=== PATIENT | male | born 1960 | race Caucasian/White ===

== ENCOUNTER 2022-11-09 19:47 | Emergency (ER) | payer OTHER, SELFPAY ==
[2022-11-09] VITALS (14 sets, daily range): BP systolic 156–193; BP diastolic 105–119; PULSE 88–93; RESP 18–32; TEMP 36.4; O2SAT 89–96
--- NOTE | 2022-11-09 20:21 | CRLHL7_ITS ---
For Patients: As a result of the Century Cures Act, medical imaging exams and procedure reports are released immediately into your electronic medical record. You may view this report before your referring provider. If you have questions, please contact your health care provider. INDICATION: Right pleural effusion, distended abdomen, shortness of breath TECHNIQUE: CT chest, abdomen and pelvis acquired with 99 cc of Isovue 370 IV contrast. Permanently recorded images are archived. COMPARISON: None. FINDINGS: CHEST: Cardiovascular structures: Heart size is normal. Thoracic aorta and main pulmonary artery are normal in caliber. No pericardial effusion. No pulmonary embolism. Aberrant right subclavian artery. Mediastinum and gayla: No mass or adenopathy. Lungs and pleura: Massive simple right-sided pleural effusion occupying nearly the entire right hemithorax. Atelectatic collapse of the right lower and right middle lobes and most of the right upper lobe. There is a small amount of aerated right upper lobe. There is [id number] mediastinal shift. The left lung is clear. No pneumothorax. Chest wall and axilla: No mass or adenopathy. Bones: No suspicious bone lesions. Unremarkable for age. ABDOMEN AND PELVIS: Liver: Unremarkable. Gallbladder and bile ducts: Unremarkable. Pancreas: Unremarkable. Spleen: Unremarkable. Adrenal glands: Unremarkable. Kidneys: Unremarkable. GI tract: Unremarkable. No obstruction. Normal appendix. Vascular structures: Unremarkable. Lymph nodes: Unremarkable. Miscellaneous: Unremarkable. No free air or significant free fluid. Pelvic Organs: Unremarkable. Bones: No suspicious bone lesions. L1 hemangioma. Partial ankylosis of the left sacroiliac joint. Otherwise, unremarkable for age. IMPRESSION: Massive simple right pleural effusion occupying nearly the entire right hemithorax with atelectatic collapse of the right middle and lower lobes and most of the right upper lobe. Small amount of aerated right upper lobe. There is associated [id number] mediastinal shift. No acute findings within the abdomen and pelvis. Please note that all CT scans at this facility use dose modulation, iterative reconstruction, and/or weight-based dosing when appropriate to reduce radiation dose to as low as reasonably achievable. Dictated by Jonathan Ling MD @ 11/09/2022 9:45:06 PM (Electronically Signed)
--- NOTE | 2022-11-09 20:27 | ED.GENADULT ---
HPI - General Adult General Chief complaint: Shortness of Breath/Dyspnea Stated complaint: Issues with lungs- says needs chest tube inserted Time Seen by Provider: 11/09/22 20:12 Source: patient and family Mode of arrival: ambulatory History of Present Illness HPI narrative: 62-year-old male with notable past medical history of hyperlipidemia only presents to the emergency department for evaluation of dyspnea on exertion, worsening over the past couple of weeks. He is now starting to have paroxysmal nocturnal dyspnea and difficulty laying flat as well. Symptoms came on gradually, no trauma or injury. Had a little bit of a distended abdomen last night as well but no nausea or vomiting. He has no history of cancers. He presented to urgent care today where they noted a large right-sided pleural effusion of undetermined etiology. He had no knowledge of this previously. He was referred to the emergency department. Other than shortness of breath on exertion, he is not having any chest pain, there has been no fevers. No cough, no hemoptysis. He reports that his last primary care appointment was a month ago where he had his annual physical with his primary care provider, his medications were renewed. He was started on the statin and took it for about a week. He stopped it hoping that this would improve his shortness of breath but of course it had no effect. He has not yet restarted it. He continues to take trazodone at bedtime, no other long-term medications currently. He takes no blood thinners, has no history of DVT or PE, no cardiac history. No prior malignancy. He has never had a colonoscopy but he gets Cologuard test and reports that this is up-to-date. No history of prostate cancer or other malignancies. He has had no early satiety or decreased appetite or weight loss. said that his abdomen seemed a little distended yesterday but it is back to baseline. No blood in his stools, no blood in his urine. Past medical history notable for hyperlipidemia, no other major long-term health problems. No recent surgeries. Meds are atorvastatin and trazodone. Nonsmoker. No pertinent travel. ROS notable for the dyspnea symptoms as above, otherwise denies times 12 systems. Related Data Home Medications Medication Instructions Recorded Confirmed rosuvastatin 20 mg tablet 20 mg PO QPM 11/09/22 11/09/22 trazodone 50 mg tablet 50 mg PO QPM 11/09/22 11/09/22 Allergies Allergy/AdvReac Type Severity Reaction Status Date / Time No Known Drug Allergies Allergy Verified 11/09/22 21:20 PFSH PFS Social History Smoking Status: Former smoker How often do you have a drink containing alcohol: monthly or less How often do you have six or more drinks on one occasion: Never AUDIT-C Alcohol total score: 1 Non-prescribed substance use: denies use Exam Const: Vital Signs, click to edit/add: Vital Signs - 24 hr 11/09/22 19:54 11/09/22 20:30 11/09/22 20:40 Temperature 97.5 F L Pulse Rate 88 90 Pulse Rate [Left P ulse Oximeter] 90 Respiratory Rate 18 32 H Blood Pressure 193/119 H Blood Pressure [Ri ght Upper Arm] 169/111 H Pulse Oximetry 96 96 95 Oxygen Delivery Me thod Room Air 11/09/22 20:45 11/09/22 21:04 11/09/22 21:15 Temperature Pulse Rate 88 92 88 Pulse Rate [Left P ulse Oximeter] Respiratory Rate 28 H Blood Pressure Blood Pressure [Ri ght Upper Arm] Pulse Oximetry 96 89 95 Oxygen Delivery Me thod 11/09/22 21:21 11/09/22 21:30 11/09/22 21:32 Temperature Pulse Rate 93 89 89 Pulse Rate [Left P ulse Oximeter] Respiratory Rate 29 H 30 H 29 H Blood Pressure 193/105 H 172/105 H Blood Pressure [Ri ght Upper Arm] Pulse Oximetry 95 94 95 Oxygen Delivery Me thod 11/09/22 21:33 11/09/22 21:45 11/09/22 22:00 Temperature Pulse Rate 91 89 88 Pulse Rate [Left P ulse Oximeter] Respiratory Rate 28 H 29 H 21 Blood Pressure Blood Pressure [Ri ght Upper Arm] Pulse Oximetry 95 94 95 Oxygen Delivery Me thod 11/09/22 22:02 11/09/22 22:15 Temperature Pulse Rate 89 91 Pulse Rate [Left P ulse Oximeter] Respiratory Rate 28 H 31 H Blood Pressure 156/107 H Blood Pressure [Ri ght Upper Arm] Pulse Oximetry 95 95 Oxygen Delivery Me thod Documenting provider has reviewed patient's vital signs: yes Common normals: no apparent distress and alert General appearance: cooperative and well kempt Orientation/consciousness: Yes awake Other: Good historian. HENMT: Common normals: normocephalic Head and scalp: normocephalic Face and sinus: normal facial exam Mouth: oral and palatal mucosa normal Throat: posterior oropharynx normal Eye: Common normals: conjunctivae normal General eye: normal appearance of both eyes Conjunctiva: conjunctiva(e) normal Neck & C-Spine: Common normals: full ROM and no lymphadenopathy Resp: Common normals: normal respiratory effort and no use of accessory muscles Other: Does get dyspnea to speaking full sentences. Breath sounds on the left are normal. I have no breath sounds whatsoever on the right side. Cardio: Common normals: regular rate, regular rhythm, S1 normal heart sound, S2 normal heart sound and no murmurs Rate: regular rate Rhythm: regular rhythm Heart sounds: S1 normal and S2 normal GI: Other: Abdomen seems a little distended. I am detecting some ascites, cannot easily palpate the edges of the liver. No obvious mass. Extremity: Common normals: normal to inspection, full ROM, normal capillary refill and no pedal edema Neuro: Sensorium/orientation: awake and alert Speech: speech normal Gait (neuro): normal gait Motor exam: strength 5/5 throughout and no movement abnormalities noted Psych: Common normals: mental status grossly normal Appearance: well kempt Attitude: engaged Insight: insight good Judgement: judgment good Skin: Common normals: no rashes or lesions noted General skin exam: no rashes or lesions noted Course Course Hospital Course: X-ray reviewed. Impressive right-sided pleural effusion, undetermined etiology. Because he is also having abdominal symptoms, recommend CT scan of the chest abdomen and pelvis, basic blood work. Concern for underlying malignancy versus lower chance for infectious or cardiac process. Will likely need surgical consult of some kind. Reevaluation(s) Reevaluation #1: Discussed the case with Dr. Nails from general surgery. At this time, he is not requiring supplemental oxygen. I confirm his respiratory rate is not 31 as is documented, it is 16-18 during our entire discussion. Oxygen saturations are well maintained on room air. He is clinically stable. He does need a thoracentesis but surgical team recommends that this be done electively outpatient. He is not on any type of anticoagulant. Per surgeon request, I call [facility] to [facility] leaving a message regarding the need to add him on for the procedure. Discussed the procedure with him and answer simple questions. I would like him off of work until after the procedure as he does report a very physically demanding job. It is okay to sleep upright in the recliner if this is helpful for him. Okay to use Tylenol as needed for pain control. Additional testing will need to be done on the pleural fluid, this was discussed with him. I am not certain as to the etiology of why he developed this pleural effusion. Hopefully the thoracentesis will be revealing. Alarm symptoms reviewed that would warrant repeat ED presentation. He verbalizes understanding and agreement. If he has not heard from the endoscopy team by early afternoon tomorrow, he should call for further clarification. Vital Signs Vital signs: Initial Vital Signs Temperature 97.5 F L 11/09/22 19:54 Temperature Source Temporal Artery Scan 11/09/22 19:54 Pulse Rate 90 11/09/22 19:54 Pulse Rhythm Regular 11/09/22 19:54 Respiratory Rate 18 11/09/22 19:54 Blood Pressure 169/111 H 11/09/22 19:54 Blood Pressure Mean 130 H 11/09/22 19:54 Blood Pressure Position Sitting 11/09/22 19:54 Pulse Oximetry 96 11/09/22 19:54 Oxygen Delivery Method Room Air 11/09/22 19:54 Vital Signs Temperature 97.5 F L 11/09/22 19:54 Pulse Rate 90 11/09/22 19:54 Respiratory Rate 18 11/09/22 19:54 Blood Pressure 169/111 H 11/09/22 19:54 Pulse Oximetry 96 11/09/22 19:54 Oxygen Delivery Method Room Air 11/09/22 19:54 Temperature 97.5 F L 11/09/22 19:54 Pulse Rate 91 11/09/22 22:15 Respiratory Rate 31 H 11/09/22 22:15 Blood Pressure 156/107 H 11/09/22 22:02 Pulse Oximetry 95 11/09/22 22:15 Oxygen Delivery Method Room Air 11/09/22 19:54 Medical Decision Making Lab Data Lab results reviewed: Yes I reviewed the patient's lab results Lab results narrative: Overall reassuring. Labs: Lab Results 11/09/22 11/09/22 Range/Units 20:15 20:21 INR 1.01 (0.91-1.10) Sodium 139 (135-149) mmol/L Potassium 4.0 (3.6-5.1) mmol/L Chloride 101 (96-114) mmol/L Carbon Dioxide 28 (20-32) mmol/L BUN 21 (7-30) mg/dL Creatinine 0.9 (0.5-1.5) mg/dL Estimated GFR 97 ml/min Glucose 91 (60-115) mg/dL Calcium 9.3 (8.4-10.6) mg/dL Total Bilirubin 0.7 (0.1-1.5) mg/dL AST 33 (12-35) U/L ALT 36 (4-50) U/L Alkaline Phosphatase 80 (40-150) U/L C-Reactive Protein 0.6 (0.5-1.0) mg/dL NT-Pro-B Natriuret Pep 63 pg/mL Total Protein 7.7 (6.0-8.3) g/dL Albumin 4.7 (3.3-5.0) g/dL Lipase 111 (23-300) U/L POC Troponin I 0.00 L (0.01-0.04) ng/ml Imaging Data Chest x-ray: Attestation: I have reviewed the pertinent imaging results. My impression: Huge right-sided pleural effusion Radiologist's impression: IMPRESSION: Near complete opacification of the right hemithorax with a large pleural effusion and underlying atelectasis, and possibly superimposed consolidation/infection. Dictated by Jonathan Ling MD @ 11/09/2022 7:18:[address] Chest/Ab/Pelvis: Attestation: I have reviewed the pertinent imaging results. My impression: Marked pleural effusion but no other obvious mass or abnormality Radiologist's impression: IMPRESSION: Massive simple right pleural effusion occupying nearly the entire right hemithorax with atelectatic collapse of the right middle and lower lobes and most of the right upper lobe. Small amount of aerated right upper lobe. There is associated [id number] mediastinal shift. No acute findings within the abdomen and pelvis. Discharge Plan Discharge Clinical Impression: Pleural effusion Patient Disposition: Home w/ Parent or Adult Condition: Stable Instructions: Pleural Effusion (DC) Additional Instructions: As we discussed, I did not find a reason for your pleural effusion. This is actually good news. The pleural effusion does need to be drained through a simple outpatient procedure called a thoracentesis. Through this, we removed the fluid and also collect some of it to analyze to try to figure out why this happened in the 1st place. I do not detect any signs of infection otherwise and the scan of your chest abdomen and pelvis did not reveal any signs of cancer or other scary reasons for the fluid. Your heart appears to be in good shape and your oxygen levels are good. It is okay to use Tylenol for pain control. I would ask that you not take any aspirin from now until the procedure. I would recommend that you be off of work until after the procedure. It is okay to continue your other typical medications. Most people find that sleeping upright in a recliner is more comfortable for them. Whatever position is acceptable. You should receive a call tomorrow from the endoscopy center to schedule your thoracentesis sometime within the next few days. They will take care of analyzing the fluid and getting back to you once those results are available. In the meantime if you become severely short of breath, come back to the emergency department. Activity Level: Activity as Tolerated Discharge Diet: Regular Prescriptions: No Action rosuvastatin 20 mg tablet 20 mg PO QPM trazodone 50 mg tablet 50 mg PO QPM Follow Up/Referrals: Provider,Not a Local [Primary Care Provider] - Stand Alone Forms: [facility] Info Instructions
[2022-11-09 20:40] LABS: Albumin* 4.7 g/dL (3.3-5.0); Chloride* 101 mmol/L (96-114)
[2022-11-09 20:41] LABS: Sodium* 139 mmol/L (135-149)
[2022-11-09 20:43] LABS: Alanine Aminotransferase* 36 U/L (4-50); Alkaline Phosphatase* 80 U/L (40-150); Aspartate Amino Transferase* 33 U/L (12-35); Bilirubin Total* 0.7 mg/dL (0.1-1.5); Blood Urea Nitrogen* 21 mg/dL (7-30); Carbon Dioxide* 28 mmol/L (20-32); Creatinine* 0.9 mg/dL (0.5-1.5); Estimated Glomerular Filt Rate 97 ml/min; Lipase* 111 U/L (23-300); Total Protein* 7.7 g/dL (6.0-8.3)
[2022-11-09 20:44] LABS: Calcium* 9.3 mg/dL (8.4-10.6); Glucose* 91 mg/dL (60-115)
[2022-11-09 20:46] LABS: C Reactive Protein* 0.6 mg/dL (0.5-1.0)
[2022-11-09 20:54] LABS: NT Pro B Type NatriureticPept* 63 pg/mL
[2022-11-09 21:02] LABS: INR 1.01 (0.91-1.10); Prothrombin Time 13.9 Seconds
== END 2022-11-09 22:42 | disposition home or self-care (01) ==
PROVIDERS: Emergency Provider Family Medicine
DX: J90 Pleural effusion, not elsewhere classified (principal)
CPT/HCPCS: 36415; 71260; 74177; 80053; 83690; 83880; 84484; 85610; 86140; 99284; Q9967

== ENCOUNTER 2022-11-10 11:03 | Outpatient (CLI) | payer OTHER, SELFPAY ==
[2022-11-10 11:30] VITALS: BP 167/103; PULSE 97; RESP 18; O2SAT 97
--- NOTE | 2022-11-10 11:31 | CRLHL7_ITS ---
For Patients: As a result of the Cures Act, medical imaging exams and procedure reports are released immediately into your electronic medical record. You may view this report before your referring provider. If you have questions, please contact your health care provider. INDICATION: Post thoracentesis. TECHNIQUE: Chest 1 view. COMPARISON: Chest radiograph 11/09/2022. FINDINGS: There is a persistent large right pleural effusion occupying nearly the entire right hemithorax. Slightly decreased fluid at the right apex. The left lung is clear. No pneumothorax identified. The cardiac silhouette is partially obscured. The bones are unremarkable. IMPRESSION: Persistent large right pleural effusion. No pneumothorax identified. Dictated by Andree Andrews MD @ 11/10/2022 1:47:25 PM (Electronically Signed)
[2022-11-10 11:35] VITALS: BP 161/107; PULSE 97; RESP 18
[2022-11-10 11:40] VITALS: BP 167/100; PULSE 97; RESP 18; O2SAT 95
[2022-11-10 11:45] VITALS: BP 162/104; PULSE 96; RESP 18; O2SAT 95
[2022-11-10 11:50] VITALS: BP 162/98; PULSE 91; RESP 18; O2SAT 96
--- NOTE | 2022-11-10 11:54 | P.PCN_ITS ---
Procedure Note Date Seen: 11/10/22 Will [facility] bill your pro fee for this procedure?: Yes Pre-op diagnosis: 1. Large right pleural effusion Of unknown etiology. Procedure: 1. Therapeutic and diagnostic right thoracentesis with ultrasound guidance. Procedure Description: Ultrasound was brought onto the field and a Right pleural effusion was visualized. 1% lidocaine was used to anesthetize the skin over the rib and local anesthetic was also injected to anesthetize the needle tract over the rib. A small skin mark was made with 11 blade scalpel and a thoracentesis needle with an angio cath was advanced into the right chest over the rib under US guidance. When the needle with the catheter was in the chest cavity, the needle was withdrawn and thoracentesis catheter was advanced further into the chest without difficulties. Cloudy yellow fluid that had an appearance of thin purulent fluid was aspirated from the chest and send for culture and fluid cytology. A total of 1650 cc of fluid was removed from the chest. Patient did well throughout the procedure. There was a lot of fluid still left in the chest. The catheter was then withdrawn and skin incision was closed with Exofin. Patient tolerated procedure well. Post procedure CXR was ordered. EBL: none Complications: none Anesthesia: local Surgeon: Ana Cristina Peacock MD Estimated blood loss (mL): 5 Pathology: specimen obtained, sent to pathology Condition: stable Disposition: no change
[2022-11-10 11:55] VITALS: BP 165/95; PULSE 89; RESP 16; O2SAT 96
[2022-11-10 12:41] LABS: Cholesterol* 169 mg/dL (90-199)
[2022-11-10 12:42] LABS: Lactate Dehydrogenase* 211 U/L (120-246); Mononuclear WBC Body Fluid* 99 %; Polynuclear WBC Body Fluid* 1 %; RBC, Body Fluid* 7000 Cells/uL; WBC, Body Fluid* 4554 Cells/uL
[2022-11-10 12:43] LABS: pH Body Fluid* 7.5
[2022-11-10 13:19] LABS: Albumin Body Fluid* 2.8 gm/dL; Amylase Body Fluid* 39 U/L; BF Total Volume* 200; Body Fluid Total Protein* 4.5 gm/dL; Cholesterol Body Fluid* 103 mg/dL; Glucose Body Fluid* 101 mg/dL; LDH Body Fluid* 122 U/L
[2022-11-10 13:21] LABS: BF Clarity* Cloudy; BF Color Xanthochromic
== END 2022-11-10 12:18 | disposition home or self-care (01) ==
LOC: US 11:04
PROVIDERS: Visit Provider Surgery
DX: J90 Pleural effusion, not elsewhere classified (principal)
CPT/HCPCS: 32555; 36415; 71045; 82040; 82042; 82150; 82465; 82945; 83615; 83986; 84155; 84157; 84311; 85610; 87015; 87070; 87102; 87116; 87205; 88112; 88184; 88185; 88305; 89051

== ENCOUNTER 2022-11-22 11:01 | Outpatient (CLI) | payer OTHER, SELFPAY ==
[2022-11-22 11:08] VITALS: BP 144/101; PULSE 94; RESP 16; O2SAT 97
[2022-11-22 11:57] VITALS: BP 146/98; PULSE 89; RESP 16; O2SAT 96
--- NOTE | 2022-11-22 11:58 | CRLHL7_ITS ---
For Patients: As a result of the Century Cures Act, medical imaging exams and procedure reports are released immediately into your electronic medical record. You may view this report before your referring provider. If you have questions, please contact your health care provider. Indication: Post thoracentesis Comparison: Single view chest November 10, 2022 Technique: Single AP view chest Findings: There is hyperinflation and chronic interstitial change. There is near complete opacification of the right hemithorax consistent with persistent pleural effusion. There is minimal aeration of the right upper lobe without obvious pneumothorax. The left hemithorax remains clear. The cardiac silhouette is obscured by parenchymal opacity. The bony thorax is grossly intact. Impression: Grossly unchanged appearance of large, loculated right-sided pleural effusion with adjacent compressive atelectasis versus infiltrates. Dictated by Fermín Jacobo MD @ 11/22/2022 1:37:27 PM (Electronically Signed)
--- NOTE | 2022-11-22 12:02 | P.PCN_ITS ---
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 Originally he was scheduled for VATS, however, when his path report returned this was canceled and further work-up was pursued. He was told by his surgeon he should get another thoracentesis. He is not feeling short of breath. He has no recent imaging since his last thoracentesis. He signed informed consent after discussion of the procedure. Using ultrasound, a pocket of fluid was identified on the right mid-back. This was marked and the area was prepped and draped sterily. 1% lidocaine was used to anesthetize the skin and subcutaneous tissue. The periosteum of the rib and pleura were also anesthetized. Cloudy fluid returned once the pleural space was reached. A skin mark was created with an 11 blade and the thoracentesis needle and catheter were advanced. I encountered resistance on the rib and I pointed the catheter up over the rib however, I continued to feel as though the needle was hitting the rib. I used the finder needle again, and using the same trajectory, I was able to easily aspirate milky pleural fluid. I attempted to pass the catheter and needle again in the same trajectory and hit resistance which felt like the rib. on palpation of the chest, it appeared as though I was in the appropriate location. I re-imaged the chest with ultrasound and was able to identify that I had been in the intercostal space. I again advanced the catheter and met some resistance but was able to get into the pleural space, however, once the needle was removed fluid return stopped and I could not advance the catheter. At this point, I discussed with the patient trying with another catheter or waiting until he became more symptomatic since he currently denied any shortness of breath. We decided to try another day when he was more symptomatic given the multiple attempts. I obtained a post-procedure x-ray and it showed a very large effusion - because of the amount of fluid, I recommended trying again to drain the fluid if the patient was amenable and he agreed. Ultrasound again identified a pocket of fluid, this time slightly more lateral where I could more easily palpate the rib. Again the area was prepped and draped steriley. Local anesthetic was injected into the skin and subcutaneous tissue, periosteum and pleural. Again cloudy fluid was aspirated. A skin mark was created and the exact trajectory was used with the catheter and needle and again I met resistance at the chest wall which felt like the rib. I palpated and could ensure that I was at the superior aspect of the rib, not on the rib itself and so I advanced the needle and catheter. I was able to enter the pleural space and again had cloudy, non-bloody fluid return. Likely the resistance I was meeting was secondary to a thickened pleura from the disease process. I removed the needle and I then attached a syringe valve system and removed 600 cc of milky fluid. When the fluid stopped flowing, I placed the ultrasound on the chest wall and while there was still fluid noted, I was unable to aspirate any more. I attempted to adjust the catheter to improve flow, however, not further fluid would flow. I then withdrew the catheter and placed an occlusive dressing. The patient tolerated the procedure well. Post-procedure x-ray revealed no pneumothorax but still with a significant effusion. I recommend repeat thoracentesis once patient is symptomatic - noting that the pleura seems to be thickened which may lead to some resistance with passage of the catheter on future attempts. Anesthesia: local Surgeon: Olivia Meléndez MD Estimated blood loss (mL): 1 Pathology: none sent Condition: stable Disposition: no change
--- NOTE | 2022-11-22 12:36 | CRLHL7_ITS ---
For Patients: As a result of the Century Cures Act, medical imaging exams and procedure reports are released immediately into your electronic medical record. You may view this report before your referring provider. If you have questions, please contact your health care provider. INDICATION: post thoracentesis TECHNIQUE: Chest 1 view COMPARISON: 12/02/2022 FINDINGS: Large volume pleural fluid remains. Some of the fluid tracks along the fissure. No discernible pneumothorax. Left lung clear. IMPRESSION: Large residual pleural fluid volume without pneumothorax. Dictated by Norman Wang MD @ 11/22/2022 1:05:06 PM (Electronically Signed)
[2022-11-22 12:40] VITALS: BP 157/106; PULSE 86; RESP 16; O2SAT 94
== END 2022-11-22 12:45 | disposition home or self-care (01) ==
LOC: US 11:01
PROVIDERS: Visit Provider Surgery
DX: J90 Pleural effusion, not elsewhere classified (principal)
CPT/HCPCS: 32555; 71045